=== PATIENT | female | born 2000 | race African-American/Black ===

== ENCOUNTER 2020-05-17 12:55 | Emergency (ER) | payer MEDICARE ==
[~2020-05-17] VITALS: Ht 152.4 cm; Wt 50.0 kg
[2020-05-17] MEDS ORDERED: ZITHROMAX Z PA250 MG PO (13:03)
[2020-05-17] MEDS ORDERED: JADENU360 MG PO (13:35)
[2020-05-17 13:36] VITALS: BP 110/71; TEMP 98
[2020-05-17 13:39] LABS: HEMATOCRIT 28.1 % (35.0-45.0); HEMOGLOBIN 9.4 g/dl (12.0-15.0); MEAN CELL VOLUME 81 fl (80.0-95.0); MEAN CORPUSCULAR HEMOGLOBIN 27 pg (26.0-32.0); MEAN CORPUSCULAR HGB CONC 34 g/dl (33.0-37.0); MEAN PLATELET VOLUME 8.9 fl (7.4-10.4); PLATELET COUNT 236 K/mm3 (130-400); RED BLOOD COUNT 3.49 M/mm3 (4.10-5.30); REDCELL DISTRIBUTION WIDTH-CV 16.2 % (11.5-14.5)
[2020-05-17 13:41] LABS: ANISOCYTOSIS 2+; BAND 23 % (0-10); LYMPHOCYTE 15 % (20.0-51.0); NEUTROPHILS 59 % (42.0-75.2); PLATELET ESTIMATE NORMAL (NORMAL)
[2020-05-17 13:42] LABS: TEAR DROP CELLS 1+
[2020-05-17 13:46] LABS: CREATININE, serum 0.48 (0.52-1.25); POTASSIUM 4.4 mmol/L (3.4-5.0)
[2020-05-17 13:47] LABS: ALBUMIN 4.2 gm/dL (3.5-5.0); BILIRUBIN,TOTAL 1.6 mg/dL (0.0-1.0); CALCIUM 9.2 mg/dL (8.4-10.2); TOTAL PROTEIN 6.3 gm/dL (6.4-8.2)
[2020-05-17 14:12] VITALS: PULSE 104
== END 2020-05-17 14:11 | disposition home or self-care (01) ==
LOC: COL.ER 12:55
PROVIDERS: Physician Assistant
DX: B34.9 Viral infection, unspecified (principal); Z20.828 Contact with and (suspected) exposure to other viral communicable diseases

== ENCOUNTER 2020-09-26 18:24 | Observation (INO) | payer MEDICARE ==
[~2020-09-26] VITALS: Ht 152.4 cm; Wt 47.7 kg
[~2020-09-26 18:24] MED LIST: JADENU360 MG PO; ZITHROMAX Z PA250 MG PO
[2020-09-26 18:50] LABS: COLLECTION METHOD CLEAN CATCH
[2020-09-26 18:59] LABS: BASO # 0.1 (0.0-0.2); BASO % 0.3 % (0.0-2.0); EOS # 0.2 (0.0-0.7); EOS % 1.5 % (0-4.0); GRAN # 12.7 (1.4-6.5); GRAN % 83.9 % (42.2-75.2); HEMOGLOBIN 11.8 g/dl (12.0-15.0); LYMPH # 1.4 (1.2-3.4); LYMPH % 8.9 % (20.0-51.0); MEAN CELL VOLUME 83 fl (80.0-95.0); MEAN CORPUSCULAR HEMOGLOBIN 28 pg (26.0-32.0); MEAN CORPUSCULAR HGB CONC 34 g/dl (33.0-37.0); MONO # 0.7 (0.1-0.6); MONO % 4.5 % (1.7-9.3); PLATELET COUNT 163 K/mm3 (130-400); RED BLOOD COUNT 4.21 M/mm3 (4.10-5.30); REDCELL DISTRIBUTION WIDTH-CV 16.2 % (11.5-14.5)
[2020-09-26 19:03] LABS: MUCOUS Present /lpf; PH 6 (5-8); SQUAMOUS EPITHELIAL 0-2 /hpf; URINE APPEARANCE Clear; URINE BACTERIA None Seen /hpf; URINE BILIRUBIN Negative (NEGATIVE); URINE BLOOD Negative (NEGATIVE); URINE COLOR Amber; URINE GLUCOSE Negative (NEGATIVE); URINE KETONE Negative (NEGATIVE); URINE LEUKOCYTE ESTERASE Negative (NEGATIVE); URINE NITRATE Negative (NEGATIVE); URINE PROTEIN(semi-quant) Negative (NEGATIVE); URINE RBC 0-2 /hpf; URINE UROBILINOGEN Negative (NEGATIVE)
[2020-09-26 19:13] LABS: ALBUMIN 4.4 gm/dL (3.5-5.0); BILIRUBIN,TOTAL 2.1 mg/dL (0.0-1.0); C-REACTIVE PROTEIN 4.1 mg/dL (0.0-0.9); CALCIUM 9.2 mg/dL (8.4-10.2); CREATININE, serum 0.46 (0.52-1.25); POTASSIUM 3.7 mmol/L (3.4-5.0); TOTAL PROTEIN 6.4 gm/dL (6.4-8.2)
[2020-09-26 22:30] VITALS: BP 104/66; PULSE 89; TEMP 98.5
[2020-09-27] VITALS (14 sets, daily range): BP systolic 94–128; BP diastolic 54–76; PULSE 63–106; TEMP 97.8–99.5
--- NOTE | 2020-09-27 10:11 | NUR ---
Initial visit; Patient thanked Personnel Clerks Supervisor for looking in on her and offering God's blessings. Personnel Clerks Supervisor will keep patient in her prayers.
--- NOTE | 2020-09-27 11:08 | NUR ---
Report to LISBETH Benitez who assumes care of patient. Patient transferred to OR via bed.
[2020-09-27] MEDS ORDERED: MOTRIN 600600 MG/TAB PO (12:38)
[2020-09-27] MEDS ORDERED: NORCO 325 MG-51 TAB PO (12:38)
--- NOTE | 2020-09-27 13:30 | NUR ---
Patient back from PACU. Report from LISBETH Arrieta. Patient alert and oriented. Tearful and rates pain 6/10. Monitors applied and VSS. Surgical sites CDI x3. Patient updated on plan of care.
[2020-09-28 00:15] VITALS: BP 106/65; PULSE 79; TEMP 97.5
[2020-09-28 05:00] VITALS: BP 108/60; PULSE 76; TEMP 98.4
[2020-09-28 07:45] VITALS: BP 105/66; PULSE 83; TEMP 97.8
--- NOTE | 2020-09-28 09:12 | NUR ---
Follow-up visit; Patient thanked [employer] Operator for checking on her again this morning and stated she is doing better this morning. [employer] Operator offered God's blessings.
--- NOTE | 2020-09-28 13:30 | NUR ---
Dismissed to home with instructions, verbalizes understanding. Alert, stable, ambulatory.
== END 2020-09-28 13:30 | disposition home or self-care (01) ==
LOC: COL.ER 18:24 → OB 22:52
PROVIDERS: Nurse Practitioner; ADMIT Surgery
DX: K35.80 Unspecified acute appendicitis (principal); Z20.828 Contact with and (suspected) exposure to other viral communicable diseases
CPT/HCPCS: G0378; J1100; J1170; J1885; J2270; J2405; J2543; J2704; J3010; J7030; J7120; Q9967

== ENCOUNTER 2021-01-08 12:42 | Emergency (ER) | payer MEDICARE ==
[~2021-01-08] VITALS: Ht 152.4 cm; Wt 50.9 kg
[~2021-01-08 12:42] MED LIST changes: +MOTRIN 600600 MG/TAB PO; +NORCO 325 MG-51 TAB PO
[2021-01-08 13:04] VITALS: BP 130/92; TEMP 98.7
[2021-01-08 15:05] VITALS: PULSE 74
== END 2021-01-08 15:06 | disposition home or self-care (01) ==
LOC: COL.ER 12:42
DX: S61.210A Laceration without foreign body of right index finger without damage to nail, initial encounter (principal); W26.8XXA Contact with other sharp object(s), not elsewhere classified, initial encounter; Y93.89 Activity, other specified; Y99.0 Civilian activity done for income or pay